=== PATIENT | male | born 2000 | race African-American/Black ===

== ENCOUNTER 2020-11-21 13:29 | Emergency (ER) | payer MEDICAID ==
[~2020-11-21] VITALS: Ht 172.7 cm; Wt 58.8 kg
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
[2020-11-21] MEDS ORDERED: ALBU0.63 NEB (13:45)
[2020-11-21] MEDS ORDERED: KETOROLAC 30 MG/1 ML IM ONE (14:30)
--- NOTE | 2020-11-21 14:37 | NUR ---
BREAK RN: REPORT TO [facility]MAR MURRY TO ASSUME PRIMARY CARE.
[2020-11-21] MEDS ORDERED: KETOROLAC 30 MG/1 ML ONE (14:52)
[2020-11-21 15:31] VITALS: BP 112/57
== END 2020-11-21 15:36 | disposition home or self-care (01) ==
LOC: ED 15:25
DX: J45.30 Mild persistent asthma, uncomplicated (principal); M94.0 Chondrocostal junction syndrome [Tietze]; R00.0 Tachycardia, unspecified
CPT/HCPCS: 71045; 93005; 96372; 99283; J1885; 99284